=== PATIENT | male | born 1950 | race Caucasian/White ===

== ENCOUNTER 2018-10-07 07:39 | Day surgery (SDC) | payer OTHER, SELFPAY ==
--- NOTE | 2018-10-07 | PATH_ITS ---
[facility] Accession Number: [id number] . 01 Material submitted: . PART A: ASCENDING COLON PART B: BIOPSY AT 30CM . 02 Diagnosis: A. Ascending Colon, Biopsy: Tubular adenoma. . B. Colon, 30 CM, Biopsy: Colonic mucosa with mild surface hyperplastic-type changes. Negative for dysplasia and malignancy. [facility]/10/08/2018 . 02 Electronically signed: . Leyla Duncan MD, Pathologist NPI- [id number] . 01 Gross description: . A. Received in formalin, labeled ascending colon, is a fragment of curiel- [place] tissue (0.7 x 0.3 x 0.1 cm). Entirely submitted in cassette A1. B. Received in formalin, labeled biopsy at 30 cm, is a fragment of curiel- [place] tissue (0.4 x 0.3 x 0.1 cm). Entirely submitted in cassette B1. ([id number]) /[facility] . 02 Pathologist provided ICD-10: D12.2 . 02 CPT . 273523, [id number] Performed at: 01 [facility] [address], [place], [place] [id number] MD Thien Suh MD Phone: [phone] Performed at: 02 [facility] [address] [place], [place] [id number] MD Leyla Duncan MD Phone: [phone]
[2018-10-07 08:11] VITALS: BP 147/86; PULSE 75; RESP 15; TEMP 36.3; O2SAT 97; BMI 34.7
--- NOTE | 2018-10-07 09:58 | PM.HP.1 ---
History of Present Illness Date Patient Seen: 10/07/18 Time Patient Seen: 09:48 Chief complaint: [id number] Narrative: Patient is gentleman here for a screening colonoscopy. Last exam was 5 years ago. He had polyps removed at that time. No family history of colon cancer. Patient History Medical History BPH (benign prostatic hyperplasia) (Chronic) Elevated cholesterol (Chronic) Gastroesophageal reflux disease (Chronic) Hypertension (Chronic) Surgical History History of incisional hernia repair (Resolved) History of repair of hiatal hernia (Resolved) Family & Social History Social History: household members spouse Former smoker Meds Home Medications Medication Instructions Recorded Confirmed Type aspirin 81 mg PO QDAY #0 07/04/11 10/07/18 History hydrochlorothiazide 1 mg PO QDAY #0 07/04/11 10/07/18 History omeprazole 20 mg PO QDAY #0 07/04/11 10/07/18 History simvastatin 10 mg PO QDAY #0 07/04/11 10/07/18 History tamsulosin 0.4 mg PO DAILY 10/07/18 10/07/18 History Allergies Allergy/AdvReac Type Severity Reaction Status Date / Time No Known Allergies Allergy Uncoded 10/07/18 08:04 Review of Systems Review of Systems All systems reviewed & are unremarkable except as noted in HPI and below Exam Vital Signs (past 8 hours): - 10/07/18 08:11 Temperature 97.4 F L Pulse Rate 75 Respiratory Rate 15 Blood Pressure 147/86 H Pulse Oximetry 97 Oxygen Delivery Method Room Air Narrative Exam Narrative: Co Operative over weight gentleman in no apparent distress. Lungs are clear to auscultation. Heart regular rate and rhythm without murmur gallop. Abdomen is protuberant soft nontender without mass. No hernia appreciated. Long midline scar. Alert and oriented x3. Assessment & Plan Plan: Assessment/Plan Narrative: Patient for screening colonoscopy. I have discussed the procedure and the rationale with the patient including risks of bleeding, perforation which would necessitate a major operation, failure to find remove all lesions and the potential to tattoo. They appeared to understand and wished to proceed.
--- NOTE | 2018-10-07 10:02 | PM.PREOP ---
Pre-operative Note Interval Note History & Physical reviewed/Exam performed by Physician: Yes Changes to H&P: No ASA Class (for procedural sedation): II
[2018-10-07] MEDS: MIDAZOLAM 5 MG/5 ML VIAL IV (10:04)
[2018-10-07] MEDS: fentaNYL 250 MCG/5 ML INJ IV (10:05)
--- NOTE | 2018-10-07 10:26 | PM.OP.ENDO ---
Operative Date/Time/Diagnoses Date of procedure: 10/07/18 Time of procedure: 10:26 Pre-op diagnosis: Screening exam. History of polyps. Post-op diagnosis: same (Sigmoid diverticulosis. Two small polyps.) Procedure & Clinicians Study performed: Colonoscopy with cold biopsy Same procedure as scheduled: Yes Indications: Screening Surgeon: Hair Meraz Procedure Notes SCOAP/Timeout: Performed Procedure in detail: The patient was placed in the left lateral decubitus position and underwent IV sedation directed by the surgeon consisting of fentanyl and Versed. Digital exam was unremarkable. I could only feel the very distal portion of his prostate. The scope was inserted and advanced through the rectum into the sigmoid, descending, transverse, and ascending colon. The patient had sigmoid diverticulosis but otherwise no other findings on the way in. The cecum was reached identified by the ileocecal valve and the appendiceal opening. The scope was gradually brought out. Polyps were found at the ascending colon near the flexure and at 20 cm from the anal verge.. The scope ultimately was retroflexed in the rectum. The appearance was normal. The scope was removed and the patient tolerated the procedure well Scope withdrawal time: 10.5 min Sedation minutes: 21 Findings: diverticulosis (Sigmoid) and polyp (Two tiny polyps) Specimen(s): other (Polyps) Complications: none Recommendations: Colonscopy in 5 years Follow up: as needed Disposition: PACU
[2018-10-07 10:31] VITALS: BP 117/81; PULSE 74; RESP 16; TEMP 36.9; O2SAT 95
[2018-10-07 10:36] VITALS: BP 146/91; PULSE 72; RESP 16; TEMP 36.8; O2SAT 95
== END 2018-10-07 10:49 | disposition home or self-care (01) ==
PROVIDERS: PCP Family Medicine; Visit Provider Specialist
PROC: 0DJD8ZZ Inspection of Lower Intestinal Tract, Via Natural or Artificial Opening Endoscopic (ICD-10-PCS; CPT 45378; principal; 2018-10-07 08:45)
DX: Z86.010 Personal history of colon polyps (principal); K57.30 Diverticulosis of large intestine without perforation or abscess without bleeding; D12.2 Benign neoplasm of ascending colon; D12.6 Benign neoplasm of colon, unspecified; I10 Essential (primary) hypertension; E78.00 Pure hypercholesterolemia, unspecified; N40.0 Benign prostatic hyperplasia without lower urinary tract symptoms
CPT/HCPCS: 45380; 99152; J2250; J3010